=== PATIENT | male | born 1960 | race Caucasian/White ===

== ENCOUNTER 2017-07-01 05:50 | Day surgery (SDC) | payer BC ==
[2017-07-01] VITALS (10 sets, daily range): BP systolic 111–136; BP diastolic 68–83; PULSE 65–88; TEMP 97–99
[~2017-07-01] VITALS: Ht 162.6 cm; Wt 59.3 kg
[2017-07-01] MEDS ORDERED: NORCO 325 MG-51 TAB PO (10:05)
[2017-07-01] MEDS ORDERED: MOTRIN 600600 MG/TAB PO (10:06)
== END 2017-07-01 14:30 | disposition home or self-care (01) ==
LOC: SDCO 05:50
DX: K40.90 Unilateral inguinal hernia, without obstruction or gangrene, not specified as recurrent (principal); F17.210 Nicotine dependence, cigarettes, uncomplicated; I20.9 Angina pectoris, unspecified; Z80.0 Family history of malignant neoplasm of digestive organs; Z82.49 Family history of ischemic heart disease and other diseases of the circulatory system; Z83.3 Family history of diabetes mellitus
CPT/HCPCS: A4315; C1781; J0690; J1100; J1885; J2175; J2270; J2405; J2704; J2710; J7120

== ENCOUNTER 2019-11-23 07:30 | Day surgery (SDC) | payer BC ==
[~2019-11-23] VITALS: Ht 162.6 cm; Wt 61.6 kg
[2019-11-23] VITALS (7 sets, daily range): BP systolic 114–129; BP diastolic 69–87; PULSE 65–89; TEMP 97.8–98.1
[~2019-11-23 07:30] MED LIST: MOTRIN 600600 MG/TAB PO; NORCO 325 MG-51 TAB PO
[2019-11-23] MEDS ORDERED: CARDURA 2MG2 MG PO (08:12)
--- NOTE | 2019-11-23 08:14 | NUR ---
TO RM AT 0736- CALL LIGHT IN REACH [employer] INTO TALK WITH PATIENT
--- NOTE | 2019-11-23 11:14 | NUR ---
TO RM 2 PER CART FROM PACU. ALERT ORIENTED X3, TALKING TO STAFF AND . PATIENT HAS BEAR HUGGER ON, C/O BEING COLD. PATIENT TAKING SIPS.
--- NOTE | 2019-11-23 11:30 | NUR ---
C/O FEELING HOT- REMOVED BEAR HUGGER AND SDC BOOTS. PATIENT STATED HE FELT BETTER. C/O PAIN 4-03/17- REFUSED ANY PAIN MED AT THIS TIME.
[2019-11-23] MEDS ORDERED: ULTRAM 50MG TAB50 MG PO (11:35)
--- NOTE | 2019-11-23 11:45 | NUR ---
RECEIVED COFFEE AND CRACKERS.
--- NOTE | 2019-11-23 12:00 | NUR ---
RECEIVED CRACKERS . NO CHANGES AT THIS TIME.
--- NOTE | 2019-11-23 12:36 | NUR ---
PATIENT SAT UP ON SIDE OF BED AND ONCE SITTING C/O INCREASED PAIN AND DIZZINESS. PAIN 7/ RECEIVED NORCO 1 TAB ORDERED
--- NOTE | 2019-11-23 12:37 | NUR ---
PATIENT REQUESTED TO STAY SITTING ON SIDE OF BED AND NOT LAY BACK DOWN. AT BEDSIDE AND CALL LIGHT IN REACH.
--- NOTE | 2019-11-23 13:16 | NUR ---
PATIENT BACK IN BED DUE TO FEELING "DIZZY"
--- NOTE | 2019-11-23 13:17 | NUR ---
PATIENT UP AND TRANSFER TO CHAIR AT BEDSIDE. AFTER TRANSFERING HE SAID HE FELT DIZZY. C/O PAIN -05/17- PATIENT STATED " I AM FINE WITH PAIN, THAT IS EXPECTED"
--- NOTE | 2019-11-23 13:20 | NUR ---
AMBULATED TO BATHROOM. VOIDED AND AMBULATED BACK TO CHAIR. PATIENT STATED " I AM READY TO GO HOME. I AM FEELING BETTER
--- NOTE | 2019-11-23 13:30 | NUR ---
RECEIVED DISCHARGE INSTRUCTIONS AND VERBALIZED UNDERSTANDING. DISCONTINUED IV AND INT- CATHETER INTACT ASSISTED PATIENT DRESSED
--- NOTE | 2019-11-23 13:45 | NUR ---
DISCHARGED PER WC BY NURSING STAFF TO PRIVATE CAR IN CARE OF ISATU.
== END 2019-11-23 14:06 | disposition home or self-care (01) ==
LOC: SDCO 07:30
DX: K40.90 Unilateral inguinal hernia, without obstruction or gangrene, not specified as recurrent (principal); N40.0 Benign prostatic hyperplasia without lower urinary tract symptoms; Z80.0 Family history of malignant neoplasm of digestive organs; Z83.3 Family history of diabetes mellitus; Z82.49 Family history of ischemic heart disease and other diseases of the circulatory system; Z87.891 Personal history of nicotine dependence
CPT/HCPCS: C1781; J0690; J1100; J1885; J2405; J2704; J3010; J7120